=== PATIENT | female | born 1955 | race Caucasian/White ===

== ENCOUNTER → 2017-01-22 | Outpatient (CLI) | payer OTHER ==
--- NOTE | 2017-01-22 12:46 | RAD ---
Right upper quadrant abdominal ultrasound, 01/22/2017: History: Right upper quadrant pain The gallbladder is within normal limits in size. A single small echogenic focus was identified with the patient in decubitus position. There appears to be a faint posterior acoustic shadow. This is probably a small gallstone. The gallbladder lay are not thickened. No bile duct dilatation is seen. There is no evidence of a hepatic mass. The visualized portions of the pancreas and right kidney are unremarkable. IMPRESSION: Probable tiny gallstone.
== END | disposition home or self-care (01) ==
LOC: US 09:25
PROVIDERS: ATTEND Family Medicine
DX: R10.11 Right upper quadrant pain (principal)
CPT/HCPCS: 76705